=== PATIENT | female | born 1960 | race Caucasian/White ===

== ENCOUNTER 2017-12-25 22:30 | Emergency (ER) | payer MEDICAID ==
[2017-12-25 23:18] LABS: MICROSCOPIC AUTO
[2017-12-25 23:23] LABS: CULTURE INDICATED? NO
[2017-12-26 00:41] VITALS: BP 145/78
== END 2017-12-26 00:43 | disposition home or self-care (01) ==
LOC: ED 23:00
DX: R31.0 Gross hematuria (principal)
CPT/HCPCS: 81001; 99283